=== PATIENT | male | born 1990 | race Caucasian/White ===

== ENCOUNTER 2022-07-27 10:41 | Day surgery (SDC) | payer OTHER ==
[2022-07-25 16:43] VITALS: BMI 23.6
[2022-07-27] MEDS ORDERED: MIDAZOLAM HCL 2 MG/2 ML SINGLE DOSE VIAL ONE (12:14)
[2022-07-27 12:45] VITALS: BP 126/84; PULSE 78; RESP 16; TEMP 98.1
== END 2022-07-27 13:20 | disposition home or self-care (01) ==
LOC: FASU-ENDO 10:41
PROVIDERS: ATTEND Internal Medicine Gastroenterology
PROC: 0DB68ZX Excision of Stomach, Via Natural or Artificial Opening Endoscopic, Diagnostic (ICD-10-PCS; 2022-07-27)
PROC: 0DB48ZX Excision of Esophagogastric Junction, Via Natural or Artificial Opening Endoscopic, Diagnostic (ICD-10-PCS; 2022-07-27)
PROC: 0DB98ZX Excision of Duodenum, Via Natural or Artificial Opening Endoscopic, Diagnostic (ICD-10-PCS; principal; 2022-07-27 12:25)
DX: K29.50 Unspecified chronic gastritis without bleeding (principal); K21.00 Gastro-esophageal reflux disease with esophagitis, without bleeding; R10.13 Epigastric pain
CPT/HCPCS: 88305-TC; 88342-TC